=== PATIENT | female | born 1995 | race Caucasian/White ===

== ENCOUNTER 2019-10-08 18:34 | Emergency (ER) | payer OTHER ==
[~2019-10-08] VITALS: Ht 165.1 cm; Wt 109.3 kg
[2019-10-08 18:45] VITALS: Ht 165.1 cm; Wt 109.3 kg
[2019-10-08 20:34] VITALS: BP 155/90
== END 2019-10-08 20:34 | disposition home or self-care (01) ==
LOC: ED 18:34
DX: R25.2 Cramp and spasm (principal)
CPT/HCPCS: 72072; J1885; Q0092

== ENCOUNTER 2020-04-07 08:00 | Emergency (ER) | payer OTHER ==
[~2020-04-07] VITALS: Ht 165.1 cm; Wt 100.7 kg
[2020-04-07 08:06] VITALS: Ht 165.1 cm; Wt 100.7 kg
[2020-04-07 10:32] LABS: BASOPHIL % 0.5 % (0-2); PLATELET COUNT 350 x10^3mcL (130-400); RED CELL DISTRIBUTION WIDTH 13.1 % (11.5-14.5)
[2020-04-07 10:53] LABS: CALCIUM 9.5 mg/dL (8.5-10.1); CARBON DIOXIDE 25.6 mmol/L (21-32); CHLORIDE SERUM 98 mmol/L (98-107); CREATININE SERUM 0.6 mg/dL (0.6-1.0); GFR1 > 60 mL/min; GLUCOSE SERUM 264 mg/dL (74-106); SODIUM SERUM 133 mmol/L (136-145)
[2020-04-07 10:58] LABS: ALBUMIN 3.8 g/dL (3.4-5.0); ALKALINE PHOSPHATASE 116 U/L (46-116); ALT/SGPT 23 U/L (14-59); AST/SGOT 11 U/L (15-37); BILIRUBIN TOTAL 0.42 mg/dL (0.20-1.00); LIPASE 82 IU/L (73-393)
[2020-04-07 11:49] VITALS: BP 111/52
== END 2020-04-07 11:49 | disposition home or self-care (01) ==
LOC: ED 08:00
PROVIDERS: Student in an Organized Health Care Education/Training Program
DX: R10.813 Right lower quadrant abdominal tenderness (principal); R10.30 Lower abdominal pain, unspecified
CPT/HCPCS: 87491; 87591; J1885; Q0092

== ENCOUNTER → 2020-06-02 | Outpatient (CLI) | payer OTHER ==
[2020-06-02 11:07] LABS: BASOPHIL % 0.3 % (0-2); PLATELET COUNT 349 x10^3mcL (130-400)
== END | disposition home or self-care (01) ==
LOC: LB 08:45
DX: Z34.90 Encounter for supervision of normal pregnancy, unspecified, unspecified trimester (principal); N30.00 Acute cystitis without hematuria; Z31.430 Encounter of female for testing for genetic disease carrier status for procreative management

== ENCOUNTER → 2020-07-21 | Outpatient (CLI) | payer OTHER ==
[2020-07-21 09:22] LABS: ALBUMIN 3.5 g/dL (3.4-5.0); ALKALINE PHOSPHATASE 83 U/L (46-116); ALT/SGPT 18 U/L (14-59); AST/SGOT 9 U/L (15-37); BILIRUBIN TOTAL 0.3 mg/dL (0.20-1.00); CALCIUM 9.3 mg/dL (8.5-10.1); CARBON DIOXIDE 22.2 mmol/L (21-32); CHLORIDE SERUM 100 mmol/L (98-107); CREATININE SERUM 0.5 mg/dL (0.6-1.0); GFR1 > 60 mL/min; GLUCOSE SERUM 107 mg/dL (74-106); POTASSIUM SERUM 3.7 mmol/L (3.5-5.1); SODIUM SERUM 135 mmol/L (136-145)
[2020-07-21 12:08] LABS: GLUCOSE FASTING 106 mg/dL (70-110)
== END | disposition home or self-care (01) ==
LOC: LB 08:18
DX: Z34.90 Encounter for supervision of normal pregnancy, unspecified, unspecified trimester (principal)

== ENCOUNTER → 2020-08-08 | Outpatient (CLI) | payer OTHER | END | disposition home or self-care (01) | LOC: LB 15:24 | DX: Z34.92 Encounter for supervision of normal pregnancy, unspecified, second trimester (principal) ==